=== PATIENT | female | born 1970 | race Caucasian/White ===

== ENCOUNTER 2020-03-19 06:56 | Day surgery (SDC) | payer BC ==
[~2020-03-19 06:56] MED LIST: Lactated Ringers 1,000 ML IV SCH; Lidocaine 1%/Sod Bicarbonate in NS 8.4% 1 ML Syringe IDERM PRN; Sodium Chloride 0.9% 10 ML Syringe FLUSH PRN
[2020-03-19] MEDS ORDERED: fentaNYL 100 MCG/2 ML SDV ONE (07:21)
[2020-03-19] MEDS ORDERED: Propofol 200 MG/20 ML SDV ONE ×2 (07:21→08:18)
[2020-03-19] MEDS ORDERED: Lidocaine 1% 6 ML ONE (07:23)
--- NOTE | 2020-03-19 07:35 | PCM.PREANE ---
Preanesthetic Assessment - Procedure Proposed Procedure: Colonoscopy - Anesthesia/Transfusion/Family Hx Anesthesia History: Prior Anesthesia Without Reaction - Review of Systems General: No Symptoms Pulmonary: No Symptoms Cardiovascular: No Symptoms Gastrointestinal: No Symptoms Neurological: No Symptoms Other: Reports: Depression, Anxiety - Physical Assessment NPO Status Date: 03/18/20 NPO Status Time: 04:30 (CLQ) ASA Class: 1 Mental Status: Alert & Oriented x3 Airway Class: Mallampati = 1 Dentition: Reports: Normal Dentition Thyro-Mental Finger Breadths: 3 Mouth Opening Finger Breadths: 3 ROM/Head Extension: Full Lungs: Clear to Auscultation, Normal Respiratory Effort Cardiovascular: Regular Rate, Regular Rhythm - Allergies Allergies/Adverse Reactions: Allergies Allergy/AdvReac Type Severity Reaction Status Date / Time No Known Allergies Allergy Verified 03/18/20 14:52 - Acknowledgements Anesthesia Type Planned: MAC Pt an Appropriate Candidate for the Planned Anesthesia: Yes Alternatives and Risks of Anesthesia Discussed w Pt/Guardian: Yes Pt/Guardian Understands and Agrees with Anesthesia Plan: Yes PreAnesthesia Questionnaire HEENT History: Reports: Impaired Vision Cardiovascular History: Reports: High Cholesterol Respiratory History: Reports: None Gastrointestinal History: Reports: Other (See Below) Other Gastrointestinal History: elevated LFTs, colonoscopy Genitourinary History: WARP HAND History: Reports: Other (See Below) Other OB/BYN History: decreased libido Musculoskeletal History: Reports: None Neurological History: Reports: None Psychiatric History: Reports: Anxiety, Depression Endocrine/Metabolic History: Reports: Vitamin D Deficiency, Other (See Below) Other Endocrine/Metabolic History: abnormal thyroid test Hematologic History: Reports: None Immunologic History: Reports: None Oncologic (Cancer) History: Reports: None Dermatologic History: Reports: Other (See Below) Other Dermatologic History: cold sores, viral wart - Infectious Disease History Infectious Disease History: Reports: None - Past Surgical History Head Surgeries/Procedures: Reports: None HEENT Surgical History: Reports: Tonsillectomy Cardiovascular Surgical History: Reports: None Respiratory Surgical History: Reports: None GI Surgical History: Reports: None Female Surgical History: Reports: Breast Implant, Hysterectomy Endocrine Surgical History: Reports: None Neurological Surgical History: Reports: None Musculoskeletal Surgical History: Reports: None Oncologic Surgical History: Reports: None Dermatological Surgical History: Reports: None - SUBSTANCE USE Tobacco Use Status *Q: Current Some Day Tobacco User Tobacco Use Within Last Twelve Months: Vaping Recreational Drug Use History: No - HOME MEDS Home Medications: Home Meds Estrogen And Progesterone 1 dose TOP DAILY 03/18/20 [History] - CURRENT (IN HOUSE) MEDS Current Meds: Current Medications Lactated Ringer's (Ringers, Lactated) 1,000 mls @ 125 mls/hr IV ASDIRECTED QUETA Stop: 03/19/20 23:00 Lidocaine/Sodium Bicarbonate (Buffered Lidocaine 1% In Ns 8.4%) 0.25 ml IDERM ONETIME PRN PRN Reason: Prior to IV Start Stop: 03/19/20 18:00 Sodium Chloride (Saline Flush) 10 ml FLUSH ASDIRECTED PRN PRN Reason: Keep Vein Open Stop: 03/19/20 18:00 Discontinued Medications Fentanyl (Sublimaze) Confirm Administered Dose 100 mcg .ROUTE .STK-MED ONE Stop: 03/19/20 07:22 Lidocaine HCl (Xylocaine-Mpf 1%) Confirm Administered Dose 6 mls @ as directed .ROUTE .STK-MED ONE Stop: 03/19/20 07:24 Propofol (Diprivan 20 Ml) Confirm Administered Dose 400 mg .ROUTE .STK-MED ONE Stop: 03/19/20 07:22
--- NOTE | 2020-03-19 08:51 | PCM.PRNOTE ---
- Free Text/Narrative Note: Date: 03/18/2020 Procedure: screening colonoscopy Endoscopist: Valeriano Cadet MD Findings: excellent prep. Two tablets obscured the appendiceal orifice. No polyps identified. Few, minor sigmoid diverticula. Hypertrophied anal papillae with minor internal hemorrhoids. Detailed Report: The patient was taken to the endoscopy suite and placed in left lateral decubitus position. Timeout was performed, and monitored anesthesia care initiated. Visual inspection of the anus revealed no abnormality. Digital rectal exam was unremarkable. The colonoscope was inserted and advanced all the way to the cecum. Colonoscopy was somewhat difficult due to redundancy of the colon, and abdominal maneuvers and repositioning to a supine position were necessary in order to reach the appendiceal orifice. In the cecum, 2 undigested tablets were identified, which were obscuring the appendiceal orifice. Once the tablets were removed with biopsy forceps, it was confirmed that the cecum had been reached with visualization of the appendiceal orifice. The scope was then slowly withdrawn, and mucosal surfaces carefully inspected. No polyps were identified. The prep was excellent. Within the sigmoid colon, there were a small number of very small diverticula noted. On retroflexion in the rectum, minor internal hemorrhoids were noted, as well as to hypertrophied anal papillae. Air was suctioned prior to withdrawal of the scope. The patient tolerated the procedure well.
--- NOTE | 2020-03-19 09:17 | PCM48HPAN ---
Post Anesthesia Note - EVALUATION WITHIN 48HRS OF ANESTHETIC Vital Signs in Normal Range: Yes Patient Participated in Evaluation: Yes Respiratory Function Stable: Yes Airway Patent: Yes Cardiovascular Function Stable: Yes Hydration Status Stable: Yes Pain Control Satisfactory: Yes Nausea and Vomiting Control Satisfactory: Yes Mental Status Recovered: Yes Vital Signs: Last Vital Signs Temp 97.0 F 03/19/20 08:49 Pulse 63 03/19/20 08:49 Resp 16 03/19/20 08:49 BP 111/78 03/19/20 08:49 Pulse Ox 100 03/19/20 08:49
== END 2020-03-19 09:30 | disposition home or self-care (01) ==
LOC: JD.SDS 06:56
PROVIDERS: ATTEND Surgery
DX: Z12.11 Encounter for screening for malignant neoplasm of colon (principal); T18.4XXA Foreign body in colon, initial encounter; K57.30 Diverticulosis of large intestine without perforation or abscess without bleeding; K64.8 Other hemorrhoids; K63.89 Other specified diseases of intestine; F41.9 Anxiety disorder, unspecified; E55.9 Vitamin D deficiency, unspecified; E78.00 Pure hypercholesterolemia, unspecified; F32.9 Major depressive disorder, single episode, unspecified; F17.290 Nicotine dependence, other tobacco product, uncomplicated; Z79.899 Other long term (current) drug therapy; Z98.890 Other specified postprocedural states
CPT/HCPCS: J2001; J2704; J3010; J7120